=== PATIENT | male | born 1945 | race Caucasian/White ===

== ENCOUNTER 2020-04-03 13:18 | Emergency (ER) | payer MEDICARE, BC ==
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
[2020-04-03 15:29] VITALS: BP 158/85; PULSE 85
== END 2020-04-03 13:52 | disposition home or self-care (01) ==
LOC: VM.ED 13:18
DX: S00.81XA Abrasion of other part of head, initial encounter (principal); I10 Essential (primary) hypertension; Z79.899 Other long term (current) drug therapy; W33.01XA Accidental discharge of shotgun, initial encounter
CPT/HCPCS: 99283

== ENCOUNTER 2024-09-19 17:32 | Emergency (ER) | payer MEDICARE, BC ==
[2024-09-19] MEDS ORDERED: Sodium Chloride 0.9% 10 ML Syringe FLUSH PRN (17:40)
[2024-09-19 17:54] LABS: BASOPHILS PERCENT AUTO 0.6 % (0.2-1.2); EOSINOPHILS ABSOLUTE AUTO 0.3 x10^3/uL (0.0-0.5); EOSINOPHILS PERCENT AUTO 5.5 % (0.0-4.0); HEMATOCRIT 42.7 % (40.0-52.0); HEMOGLOBIN 14.7 g/dL (14.0-18.0); IMMATURE GRAN ABSOLUTE AUTO 0.01 x10^3/uL (0.00-0.07); LYMPHOCYTES PERCENT AUTO 16.8 % (25.0-50.0); MEAN CORPUSCULAR HEMOGLOBIN 32.9 pg (26.0-32.0); MEAN CORPUSCULAR HGB CONC 34.4 g/dL (32.0-36.0); MEAN CORPUSCULAR VOLUME 95.5 fL (78.0-93.0); MONOCYTES ABSOLUTE AUTO 0.8 x10^3/uL (0.0-0.8); MONOCYTES PERCENT AUTO 12.9 % (2.0-11.0); PLATELET COUNT,PLT 171 x10^3/uL (130-400); RED BLOOD CELL COUNT 4.47 x10^6/uL (4.5-6.0); WHITE BLOOD CELL COUNT,WBC 6.2 x10^3/uL (4.0-10.0)
[2024-09-19 18:05] VITALS: BP 162/87; PULSE 83
[2024-09-19 18:08] LABS: A/G RATIO 1.45; ALBUMIN 4.2 g/dL (3.4-5.0); BILIRUBIN TOTAL 0.6 mg/dL (0.2-1.0); CALCIUM 9.1 mg/dL (8.5-10.1); CREATININE 1.3 mg/dL (0.70-1.30); EST CRCL DRUG DOSING (CG) 49.13 mL/min; PROTEIN TOTAL,TP 7.1 g/dL (6.4-8.2)
[2024-09-19] MEDS: Iopamidol 612 MG/ML 100 ML Bottle IVPUSH ONE (18:40)
[2024-09-19] MEDS: Take Home: traMADol 50 MG, 4 Tab Pack PO ONE (19:53)
[2024-09-19] MEDS ORDERED: Take Home: traMADol 50 MG, 4 Tab Pack ONE (19:53)
== END 2024-09-19 20:00 | disposition home or self-care (01) ==
LOC: VM.ED 17:32
DX: S20.211A Contusion of right front wall of thorax, initial encounter (principal); I10 Essential (primary) hypertension; Z79.899 Other long term (current) drug therapy; Z79.82 Long term (current) use of aspirin; W11.XXXA Fall on and from ladder, initial encounter
CPT/HCPCS: 71260; 74177; 80053; 83690; 85025; 99284; 99285; A9270; Q9967